=== PATIENT | male | born 2000 | race Caucasian/White ===

== ENCOUNTER 2019-04-05 19:01 | Emergency (ER) | payer BC ==
[2019-04-05] MEDS ORDERED: HYDROmorphone 1 MG/ML Syringe IM ONE (19:40)
--- NOTE | 2019-04-05 19:46 | EDM.PDOC ---
ED HPI GENERAL MEDICAL PROBLEM - General Chief Complaint: Upper Extremity Injury/Pain Stated Complaint: FINGER INJURY Time Seen by Provider: 04/05/19 19:16 Source of Information: Reports: Patient, RN Notes Reviewed History Limitations: Reports: No Limitations - History of Present Illness INITIAL COMMENTS - FREE TEXT/NARRATIVE: Patient is a 18-year-old male who presents to the ED for evaluation of a left pinky finger injury. Patient notes he was evaluated at the walk-in clinic, they took an x-ray, and told him that it was "broken", that he needs to come to the ER for management. Patient states that he was playing basketball roughly 2 hours ago, and he hurt his left pinky finger. He has not been able to move it very much since then. He does appreciate some mild swelling at the PIP, and he cannot really extend his finger. And it seems to be stuck in flexion. He notes that he did have a previous injury to this pinky a few years ago. He states that he is right hand dominant. He did not take any pain meds for this, he has not tried ice this nor use any other pain relieving modality. Left Finger-Little Pain Score (Numeric/FACES): 5 - Related Data Allergies Allergy/AdvReac Type Severity Reaction Status Date / Time No Known Allergies Allergy Verified 04/05/19 19:28 Home Meds: Home Meds . [No Known Home Meds] 04/05/19 [History] Past Medical History - Past Surgical History HEENT Surgical History: Reports: Oral Surgery Musculoskeletal Surgical History: Reports: Arthroscopic Knee Social & Family History - Tobacco Use Smoking Status *Q: Never Smoker - Caffeine Use Caffeine Use: Reports: None - Recreational Drug Use Recreational Drug Use: No Review of Systems - Review of Systems Review Of Systems: Comprehensive ROS is negative, except as noted in HPI. Musculoskeletal: Reports: Joint Pain (Left pinky at PIP with mild swelling noted ) Skin: Denies: Bruising Neurological: Denies: Numbness, Tingling ED EXAM, GENERAL - Physical Exam Exam: See Below Exam Limited By: No Limitations General Appearance: Alert, WD/WN, No Apparent Distress Respiratory/Chest: No Respiratory Distress, Lungs Clear, Normal Breath Sounds, No Accessory Muscle Use, Chest Non-Tender Cardiovascular: Normal Peripheral Pulses, Regular Rate, Rhythm, No Murmur Peripheral Pulses: 3+: Radial (L), Radial (R) Extremities: Normal Capillary Refill, Limited Range of Motion (Of left pinky d/ t pain, pt can move the pinky at the MCP just fine, but states it is difficult to move the pinky at the PIP. He cannot extend the finger fully at this time d/ t pain) Neurological: Alert, Oriented, Normal Cognition, No Motor/Sensory Deficits Psychiatric: Normal Affect, Normal Mood Skin Exam: Warm, Dry, Intact, Normal Color, No Rash ED TRAUMA EXTREMITY PROCEDURES - Splinting Left 5th Digit Splint Site: L pinky finger Pre-Procedure NV Status: Normal Post-Procedure NV Status: Normal Splint Material: Aluminum-Foam Splint Design: Volar Applied & Form Fitted By: Provider Provider Post-Splint Application NV Check: NV Status Normal, Good Position Complications: No Course - Vital Signs Last Recorded V/S: Last Vital Signs Temp 97.9 F 04/05/19 19:25 Pulse 61 04/05/19 19:25 Resp 20 04/05/19 19:25 BP 130/80 04/05/19 19:25 Pulse Ox 100 04/05/19 19:25 - Orders/Labs/Meds Meds: Medications Discontinued Medications Generic Name Dose Route Start Last Admin Trade Name Freq PRN Reason Stop Dose Admin Hydromorphone HCl 1 mg 04/05/19 19:40 04/05/19 19:47 Dilaudid IM 04/05/19 19:41 1 mg ONETIME ONE Administration - Re-Assessments/Exams Free Text/Narrative Re-Assessment/Exam: 04/05/19 19:45 Patient presents to the ED for the evaluation of a left pinky finger injury. The x-rays were sent to us by the [facility] walk-in [facility] and demonstrate no acute fracture. The x-ray report was faxed to us, and this demonstrates mild soft tissue swelling about the left PIP joint of the fifth finger with associated flexion. At this time I did discuss with the patient his options, regarding aluminum/foam splinting. He would like to have the aluminum/foam splint placed. I did order 1 mg IM Dilaudid for initial pain management, and will try to straighten the finger out as much as possible and tape this in place with an aluminum foam splint. 04/05/19 19:50 I did consult Ortho at [facility] in [place] for suggestions on management , Dr. Valdovinos recommends a simple aluminum foam type splint with finger in as much extension as possible and follow up with ortho. Departure - Departure Time of Disposition: 19:47 Disposition: Home, Self-Care 01 Condition: Fair Clinical Impression: Sprain of interphalangeal joint of left little finger, initial encounter - Discharge Information *PRESCRIPTION DRUG MONITORING PROGRAM REVIEWED*: No *COPY OF PRESCRIPTION DRUG MONITORING REPORT IN PATIENT GILSON: No Instructions: Finger Sprain, Adult, [id number], How to Nick Tape Referrals: Ambreen Correia PA [Primary Care Provider] - Forms: ED Department Discharge, ED Return to Work/School Form Additional Instructions: You have been evaluated in the ED for your left pinky finger injury. Your x-ray demonstrated no acute fracture or bony abnormality. Please use ice as tolerated to the affected area. You may take Tylenol 500 mg or ibuprofen 600mg q6 hrs for pain relief. Please do so until you have a tolerable level of pain with activity. Do not exceed 4000mg tylenol, Do not exceed 3200mg ibuprofen in a 24 hour time period. Please call Ortho for follow-up and further evaluation Dr. Fabian is our orthopedic surgeon, his office number is [phone]. You may also contact Dr. Mix at the [facility] for orthopedic management, the [facility] number is [phone]. Please call and set up an appointment as soon as possible for further management. Please return to ED if your symptoms should change or worsen.
== END 2019-04-05 20:26 | disposition home or self-care (01) ==
LOC: JD.ED 19:01
DX: S63.637A Sprain of interphalangeal joint of left little finger, initial encounter (principal); X58.XXXA Exposure to other specified factors, initial encounter; Y93.67 Activity, basketball
CPT/HCPCS: 96372; 99283; J1170

== ENCOUNTER 2019-05-12 04:15 | Emergency (ER) | payer BC ==
--- NOTE | 2019-05-12 04:35 | EDM.PDOC ---
ED HPI GENERAL MEDICAL PROBLEM - General Chief Complaint: ENT Problem Stated Complaint: LEFT EYE PAIN Time Seen by Provider: 05/12/19 04:30 - History of Present Illness INITIAL COMMENTS - FREE TEXT/NARRATIVE: 19-year-old male presents the emergency room with left eye pain. This is been going on for the last almost 24 hours. The patient has had some discharge coming from this eye. His vision is a little foggy at times. He is getting progressive swelling around his eye lids and discharge on his eyelashes. Patient does wear contact lenses and has [address] at this time he was unable to get it removed. Patient has not had problems like this in the past Left Eye Pain Score (Numeric/FACES): 6 - Related Data Allergies Allergy/AdvReac Type Severity Reaction Status Date / Time No Known Allergies Allergy Verified 05/12/19 04:23 Home Meds: Home Meds Ciprofloxacin [Ciprofloxacin 0.3% Ophth Soln] 5 ml OP ASDIRECTED #1 bottle 05/12 [Rx] Past Medical History - Past Health History Medical/Surgical History: Denies Medical/Surgical History - Past Surgical History HEENT Surgical History: Reports: Oral Surgery Musculoskeletal Surgical History: Reports: Arthroscopic Knee Social & Family History - Tobacco Use Smoking Status *Q: Never Smoker - Caffeine Use Caffeine Use: Reports: None ED ROS GENERAL - Review of Systems Review Of Systems: See Below Constitutional: Reports: No Symptoms HEENT: Reports: Eye Discharge, Eye Pain Respiratory: Reports: No Symptoms Cardiovascular: Reports: No Symptoms GI/Abdominal: Reports: No Symptoms ED EXAM GENERAL W FULL EYE - Physical Exam Exam: See Below Exam Limited By: No Limitations General Appearance: Alert Eye Exam: Left Eye: Conjunctival Injection Visual Acuity (R) 20/: 20 Visual Acuity (L) 20/: 30 With Correction: Yes Eyelids: Left: Erythema, Lid Everted for Exam Conjunctiva & Sclera: Left: Conjunctival Edema, Discharge, Injected Cornea Exam: Left: Corneal Abrasion (Tiny superficial at the 3 o'clock position) , Examined with Flourescein Extraocular Movements: Bilateral: Intact Pupils: Normal Accommodation Pupillary Reaction: Bilateral: Brisk Anterior Chamber: Left: Normal Appearance Head: Atraumatic, Normocephalic Neck: Normal Inspection, Supple, Non-Tender, Full Range of Motion Respiratory/Chest: No Respiratory Distress, Lungs Clear, Normal Breath Sounds, No Accessory Muscle Use, Chest Non-Tender Course - Vital Signs Last Recorded V/S: Last Vital Signs Temp 36.0 C 05/12/19 04:21 Pulse 54 L 05/12/19 04:21 Resp 16 05/12/19 04:21 BP 128/68 05/12/19 04:21 Pulse Ox 100 05/12/19 04:21 - Orders/Labs/Meds Orders: Active Orders 24 hr Category Date Time Status Ciprofloxacin [Ciloxan 0.3% Ophth Soln] Med 05/12/19 05:30 Active 1 ml EYELF Q4H Medication Orders Ciprofloxacin (Ciloxan 0.3% Ophth Soln) 1 ml EYELF Q4H BILLIE Meds: Medications Generic Name Dose Route Start Last Admin Trade Name Freq PRN Reason Stop Dose Admin Ciprofloxacin 1 ml 05/12/19 05:30 Ciloxan 0.3% Ophth Soln EYELF Q4H BILLIE Discontinued Medications Generic Name Dose Route Start Last Admin Trade Name Freq PRN Reason Stop Dose Admin Fluorescein Sodium 1 mg 05/12/19 04:40 05/12/19 04:48 Ful-Liliana EYELF 05/12/19 04:41 1 mg ONETIME ONE Administration Proparacaine HCl 1 ml 05/12/19 04:40 05/12/19 04:47 Proparacaine 0.5% Ophth Soln EYELF 05/12/19 04:41 2 drp ONETIME ONE Administration - Re-Assessments/Exams Free Text/Narrative Re-Assessment/Exam: 05/12/19 05:26 After confirming no foreign bodies under the lids I had to remove the contact lens for the patient. Proparacaine was placed prior to this. Slit-lamp was done along with fluorescein and cobalt blue filter revealing a tiny defect at the 3 o'clock position just at the edge of the [id number]. After the lens was removed the patient felt much better. Will be started on ciprofloxacin eyedrops and he is advised to follow-up with his eye doctor later today. Departure - Departure Time of Disposition: 05:28 Disposition: Home, Self-Care 01 Clinical Impression: Conjunctivitis - Discharge Information Prescriptions: Ciprofloxacin [Ciprofloxacin 0.3% Ophth Soln] 5 ml OP ASDIRECTED #1 bottle Referrals: PCP,Not In Area [Primary Care Provider] - Forms: ED Department Discharge Additional Instructions: Return to the emergency room with any questions problems or worsening symptoms. Follow-up with your eye doctor today. Use the eyedrops. 1 to 2 drops to the left eye every 2 hours while awake for 2 days and then 1-2 drops to the left eye every 4 hours while awake for 5 days. Sepsis Event Note - Evaluation Sepsis Screening Result: No Definite Risk - Focused Exam Vital Signs: Vital Signs Temp Pulse Resp BP Pulse Ox 05/12/19 04:21 36.0 C 54 L 16 128/68 100 Date Exam was Performed: 05/12/19 Time Exam was Performed: 05:22 - My Orders Last 24 Hours: My Active Orders 05/12/19 05:30 Ciprofloxacin [Ciloxan 0.3% Ophth Soln] 1 ml EYELF Q4H - Assessment/Plan Last 24 Hours: My Active Orders 05/12/19 05:30 Ciprofloxacin [Ciloxan 0.3% Ophth Soln] 1 ml EYELF Q4H
[2019-05-12] MEDS ORDERED: Fluorescein 1 MG Ophth Strip EYELF ONE (04:40)
[2019-05-12] MEDS ORDERED: Proparacaine 0.5% Ophth Soln 15 ML Bottle EYELF ONE (04:40)
[2019-05-12] MEDS ORDERED: Ciprofloxacin 0.3% Ophth Soln 5 ML Bottle EYELF SCH (05:30)
== END 2019-05-12 05:41 | disposition home or self-care (01) ==
LOC: JD.ED 04:15
DX: H10.9 Unspecified conjunctivitis (principal)
CPT/HCPCS: 99283; A9270